=== PATIENT | male | born 1975 | race Two or more races ===

== ENCOUNTER → 2020-07-30 | Day surgery (SDC) | payer OTHER ==
[2020-07-30] VITALS (9 sets, daily range): BP systolic 122–157; BP diastolic 78–103
[~2020-07-30] VITALS: Ht 172.7 cm; Wt 117.0 kg
[~2020-07-30] MED LIST: AMLODIPINE BESY10 MG ORAL; FAMOTIDINE20 MG ORAL; LOSARTAN POTASS50 MG ORAL; LR 1000ml 1,000 ML IV SCH; LR 1000ml ONE; Lidocaine 1% MPF 10mg/ml 5ml ONE; OMEPRAZOLE40 M1 ORAL; ZYRTEC10 MG ORAL; atorvastatin PO
--- NOTE | 2020-07-30 08:25 | Short Stay Surgery H&P ---
History of Present Illness History of Present Illness Chief Complaint Abdominal pains/GERDs MARK Mcdaniel is a 44 year old male who was admitted on for Abdominal Pain , Gerd Patient History Allergies: Coded Allergies: No Known Allergies (Unverified , 07/12/20) PAST MEDICAL HISTORY: (1) Hypertension (2) Hyperlipidemia Medication History Scheduled Amlodipine Besylate* (Amlodipine Besylate*), 10 MG ORAL DAILY, (Reported) Cetirizine Hcl* (Zyrtec*), 10 MG ORAL DAILY, (Reported) Famotidine* (Pepcid 20mg tablet*), 20 MG ORAL DAILY, (Reported) Losartan Potassium* (Losartan Potassium*), 50 MG ORAL DAILY, (Reported) Omeprazole (Omeprazole), 40 MG ORAL DAILY, (Reported) [atorvastatin], 1 TAB PO DAILY, (Reported) Review of Systems Cardiovascular: Reports: hypertension Respiratory: Reports: no symptoms Skeletal: Reports: trauma Gastrointestinal: Reports: gastro esophageal reflux disease Genitourinary: Reports: no symptoms Neurologic: Reports: no symptoms Endocrine: Reports: no symptoms Hematologic: Reports: no symptoms Physical Exam Vital Signs Last Vital Signs Date Time Temp Pulse Resp B/P (MAP) Pulse Ox O2 Delivery O2 Flow Rate FiO2 07/30/20 07:50 Room Air 07/30/20 07:46 97.8 82 18 157/103 100 Skin: normal HENT: normal Heart: normal Lungs: normal Abdomen: abnormal Extremities: normal Genitourinary: normal Plan Plan of Care Upper GI. endoscopy with biopsy. Preop Interventions None. Summary of Findings See the reports. Attestation Are the patient's medical conditions optimized for surgery? Attestation Response: yes Jerrod Boateng MD Jul 30, 2020 08:25
--- NOTE | 2020-07-30 08:26 | Pre-Procedure Note/Attestation ---
Pre-Procedure Note/Attestation Complete Prior to Procedure Planned Procedure: left Procedure Narrative: Examination of the upper GI. tract vis endoscopy with obtaining biopsy. Indications for Procedure Pre-Operative Diagnosis: R/O Peptic ulcer/gastritis/esophagitis. Attestation I attest that I discussed the nature of the procedure; its benefits; risks and complications; and alternatives (and the risks and benefits of such alternatives ), prior to the procedure, with the patient (or the patient's legal sales representative health insurance). I attest that, if there was a reasonable possibility of needing a blood transfusion, the patient (or the patient's legal sales representative health insurance) was given the [place] [employer] standardized written summary, pursuant to the [place] Blood Safety Act ([place] Health and Safety Code # 1645, as amended). I attest that I re-evaluated the patient just prior to the surgery and that there has been no change in the patient's H&P, except as documented below: Jerrod Boateng MD Jul 30, 2020 08:26
--- NOTE | 2020-07-30 08:27 | Discharge Instructions ---
Discharge Instructions Discharge Instructions Follow up with: See the docotor in office after 2 weeks, call first. For Congestive Heart Failure Reminder Report to your physician any weight gain of 5 pounds or more in one week. Jerrod Boateng MD Jul 30, 2020 08:27
--- NOTE | 2020-07-30 08:52 | Endoscopy Procedure Note ---
Endoscopy Procedure Note General Indication for Procedure: abdominal pains, GERds Procedures Performed: EGD - a 3mm gastric body polyp removed by cold snare with antritis, biopsy taken from antral area. Specimen: yes Pt Tolerated Procedure Well: Yes Estimated Blood Loss: none Anesthesia Anesthesiologist: Ms. Edilma Toribio Anesthesia: moderate sedation Medications Medication Given: see anesthesia record Inserted Devices Implant(s) used?: No Quality Quality of Bowel Preparation: Excellent Was there any complications?: No GI Core Measures 50 yrs or older w/o bx or poly: Not Applicable 10yrs. F/U recommended: Not Applicable If not recommended, why?: Med reason:<3 yrs.: System Reason:<3 yrs.: Jerrod Boateng MD Jul 30, 2020 08:52
--- NOTE | 2020-07-30 09:01 | Anethesia Preoperative Eval ---
Anesthesia Pre-op PMH/ROS General Date of Evaluation: Jul 30, 2020 Time of Evaluation: 08:40 Anesthesiologist: rowena ASA Score: ASA 3 Mallampati Score Class I : Soft palate, uvula, fauces, pillars visible Class II: Soft palate, uvula, fauces visible Class III: Soft palate, base of uvula visible Class IV: Only hard plate visible Mallampati Classification: Class III Surgeon: Liza Diagnosis: Gerd Surgical Procedure: EGD Anesthesia History: none Family History: no anesthesia problems Allergies: Coded Allergies: No Known Allergies (Unverified , 07/12/20) Medications: see eMAR Patient NPO?: Yes NPO Date: Jul 30, 2020 NPO Time: 00:01 Past Medical History Cardiovascular: Reports: HTN; Denies: CAD, CA, valve dz, arrhythmia, other Pulmonary: Reports: RIMMA; Denies: asthma, COPD, other Gastrointestinal/Genitourinary: Reports: GERD Neurologic/Psychiatric: Denies: dementia, CVA, depression/anxiety, TIA, other Endocrine: Denies: DM, hypothyroidism, steroids, other HEENT: Denies: cataract (L), cataract (R), glaucoma, [place] (L), [place] (R), other Hematology/Immune: Denies: anemia, DVT, bleeding disorder, other Musculoskeletal/Integumentary: Denies: OA, RA, DJD, DDD, edema, other Other: obesity Anesthesia Pre-op Phys. Exam Physician Exam Last Vital Signs Date Time Temp Pulse Resp B/P (MAP) Pulse Ox O2 Delivery O2 Flow Rate FiO2 07/30/20 07:50 Room Air 07/30/20 07:46 97.8 82 18 157/103 100 Constitutional: NAD Neurologic: CN 2-12 intact Cardiovascular: RRR Gastrointestinal: S/NT/ND Airway Exam Mallampati Classification 3 Mallampati Score: Class III MO: limited Neck: thick ROM: limited Dentures: no upper, no lower Anesthesia Pre-op A/P Studies Pre-op Studies: EKG - SR Risk Assessment & Plan Assessment: covid neg Plan: MAC Status Change Before Surgery: No Pre-Antibiotics Drug: none Edilma Jones CRNA Jul 30, 2020 09:01
--- NOTE | 2020-07-30 09:02 | Immediate Post-Op Evaluation ---
Immediate Post-Op Evalulation Immediate Post-Op Evalulation Procedure: EGD Date of Evaluation: Jul 30, 2020 Time of Evaluation: 09:01 IV Fluids: 800 Blood Pressure Systolic: 123 Blood Pressure Diastolic: 78 Pulse Rate: 81 Respiratory Rate: 14 O2 Sat by Pulse Oximetry: 98 Temperature (Fahrenheit): 97.4 Nausea: No Vomiting: No Patient Status: awake, reacts, patent Hydration Status: adequate Drug: none PhilipperiEdilma casper CRNA Jul 30, 2020 09:02
--- NOTE | 2020-07-30 09:41 | 48 Hour Post Anesthesia Eval ---
Post Anesthesia Evaluation Procedure: EGD Date of Evaluation: Jul 30, 2020 Time of Evaluation: 09:41 Blood Pressure Systolic: 130 0: 88 Pulse Rate: 60 Respiratory Rate: 14 O2 Sat by Pulse Oximetry: 98 Airway: patent Nausea: No Vomiting: No Hydration Status: adequate Cardiopulmonary Status: stable Mental Status/LOC: patient returned to baseline Follow-up Care/Observations: na Post-Anesthesia Complications: none Follow-up care needed: N/A Edilma Jones CRNA Jul 30, 2020 09:41
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
--- NOTE | 2020-07-30 16:00 | Operative Note - Dictated ---
DATE OF OPERATION: 07/30/2020 SURGEON: Jerrod Boateng MD PROCEDURE: Esophagogastroduodenoscopy with biopsy. PREOPERATIVE DIAGNOSES: Epigastric pain, abdominal pain; rule out peptic ulcer disease, gastritis, esophagitis. POSTOPERATIVE DIAGNOSES: 1. Evidence of inflammatory process in the antrum consistent with antritis, biopsied. 2. Presence of 3 mm pedunculated polypoid lesion in the gastric body, which was removed with cold snare. MEDICATIONS USED: Per Ms. Edilma Jones print and pattern designer. INSTRUMENT: GIF Olympus upper GI video endoscope. DESCRIPTION OF PROCEDURE: The patient after arriving in endoscopy unit, was told about risks and benefits of the procedure, which he accepted and signed informed consent. At this time, he was put in the left lateral decubitus position. After adequate IV sedation, the scope was gently passed through the cricopharyngeal area, was lodged into the upper esophagus, and gradually advanced towards gastroesophageal junction. The entire length of esophagus looked normal. There was no evidence of any inflammatory process, ulceration, stricture, etc. GE junction also looked normal without presence of hiatal hernia or Cutler's mucosa. At this time, the scope was advanced into the stomach. Gastric cavity was distended with insufflation of air. The areas of the fundus and the body were examined, which looked normal; however, in the antrum and the antral area, there was evidence of inflammatory process, which was consistent with nodular gastritis particularly in pre-pyloric area. This area was biopsied as well. On retroflexion maneuver, there was seen an incidental presence of a 3 mm pedunculated benign-looking polypoid lesion, which was grabbed with a cold snare and removed totally and sent to the pathology lab. At this time, the scope was passed through the pylorus. First and second portion of duodenum were found to be completely normal. Finally, scope was pulled out and the procedure was terminated. The patient tolerated the procedure well and left the endoscopy room in good condition. Jerrod Boateng M.D. DR: Nirmal JOB#: [id number] CC:
== END | disposition home or self-care (01) ==
LOC: GAS 07:07
DX: R10.13 Epigastric pain (principal); K31.7 Polyp of stomach and duodenum; K29.50 Unspecified chronic gastritis without bleeding; E78.5 Hyperlipidemia, unspecified; I10 Essential (primary) hypertension; Z79.899 Other long term (current) drug therapy; K21.9 Gastro-esophageal reflux disease without esophagitis; G47.30 Sleep apnea, unspecified; Z79.82 Long term (current) use of aspirin; E66.01 Morbid (severe) obesity due to excess calories; Z68.39 Body mass index [BMI] 39.0-39.9, adult
CPT/HCPCS: 43239; 43251; 94003; J2704; J7120; U0002; 94150